=== PATIENT | male | born 1985 | race African-American/Black ===

== ENCOUNTER 2023-08-15 17:22 | Emergency (ER) | payer SELFPAY ==
[~2023-08-15] VITALS: Ht 172.7 cm; Wt 68.0 kg
[2023-08-15 17:30] VITALS: O2SAT 96
[2023-08-15] MEDS ORDERED: MIDAZOLAM HCL 2 MG/2 ML VIAL IM ONE (17:45)
[2023-08-15] MEDS ORDERED: HALOPERIDOL LACTATE 5MG/ML VIAL IM ONE (17:45)
[2023-08-15] MEDS ORDERED: HALOPERIDOL LACTATE 5MG/ML VIAL IM NR (18:45)
[2023-08-15] MEDS ORDERED: MIDAZOLAM HCL 2 MG/2 ML VIAL IM NR (18:45)
[2023-08-16 06:03] VITALS: BP 112/86; PULSE 80; RESP 18
== END 2023-08-16 06:04 | disposition home or self-care (01) ==
LOC: ER 17:36
DX: F10.129 Alcohol abuse with intoxication, unspecified (principal); R51.9 Headache, unspecified; Z98.890 Other specified postprocedural states; Y90.9 Presence of alcohol in blood, level not specified
CPT/HCPCS: 99291